=== PATIENT | male | born 1985 | race Caucasian/White ===

== ENCOUNTER 2020-06-17 07:09 | Emergency (ER) | payer OTHER, SELFPAY ==
[2020-06-17 07:10] VITALS: BP 117/69; PULSE 92; RESP 20; TEMP 36.9; O2SAT 100
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
[2020-06-17 07:59] LABS: Ethanol 246 mg/dL (0-6)
[2020-06-17 08:02] VITALS: BP 120/87; PULSE 87; RESP 20; TEMP 36.9; O2SAT 98
[2020-06-17 08:06] LABS: Amphetamine Screen Urine Negative (Negative); Barbiturate Screen Urine Negative (Negative); Benzodiazepines Screen Urine Negative (Negative); Cannabinoid Screen Urine Negative (Negative); Cocaine Screen Urine Negative (Negative); Methadone Screen Urine Negative (Negative); Opiate Screen Urine Negative (Negative); Phencyclidine Screen Urine Negative (Negative)
== END 2020-06-17 08:14 | disposition home or self-care (01) ==
PROVIDERS: Emergency Provider Emergency Medicine
DX: F10.129 Alcohol abuse with intoxication, unspecified (principal)
CPT/HCPCS: 36415; 80307; 99282; 99283